=== PATIENT | male | born 1960 | race Caucasian/White ===

== ENCOUNTER 2021-03-31 10:21 | Outpatient (CLI) | payer OTHER, SELFPAY ==
--- NOTE | 2021-03-31 10:30 | ECG_ITS ---
Measurements Intervals [place] Rate: 53 P: 22 OH: 186 QRS: -3 QRSD: 104 T: 33 QT: 416 QTc: 391 Interpretive Statements SINUS BRADYCARDIA BORDERLINE R WAVE PROGRESSION, ANTERIOR LEADS CONSIDER INFERIOR INFARCT, AGE INDETERMINATE ABNORMAL ECG Electronically Signed On 03-31-2021 10:39:59 CDT by Дмитрий Yost D.O.
== END 2021-03-31 10:22 | disposition home or self-care (01) ==
LOC: ANHSURGERY 10:24
PROVIDERS: PCP Family Medicine; Visit Provider Surgery
DX: Z01.818 Encounter for other preprocedural examination (principal); E78.2 Mixed hyperlipidemia; R94.31 Abnormal electrocardiogram [ECG] [EKG]
CPT/HCPCS: 93005

== ENCOUNTER 2021-04-05 00:26 | Day surgery (SDC) | payer OTHER, SELFPAY ==
[2021-03-29 18:15] VITALS: BMI 27.0
--- NOTE | 2021-04-04 13:54 | P.PNAN_ITS ---
Anes - Initial Pre Proc Eval Procedure: Operation Date: 04/05/21 12:30 Proposed Procedures p Ventral Hernia Repair with Mesh - Nima Friend DO Date/Time: 04/04/21 13:54 Surgeon: Nima Friend DO Pre Op Diagnosis: ventral hernia Patient Data Age: 60 Gender: M Height: 1.88 m Weight: 95.45 kg Allergies Allergy/AdvReac Type Severity Reaction Status Date / Time No Known Allergies Allergy Verified 04/05/21 10:42 Home Medications Medication Instructions Recorded Confirmed Type Crestor 5 mg tablet 5 mg PO DAILY #90 tablet NS 12/15/20 03/29/21 Rx allopurinol 300 mg tablet See Rx Instructions .ROUTE 12/15/20 03/29/21 Rx .COMPLEX #90 tablet esomeprazole magnesium 20 mg 20 mg PO DAILY 02/20/21 03/29/21 History capsule,delayed release Patient hx anesthesia problems: none Family hx anesthesia problems: none [facility] Past Medical History Medical History (Updated 04/04/21 @ 13:54 by Luis Jeong DO) GERD (gastroesophageal reflux disease) Hyperlipidemia Family History Family History Father Stenosis of lumbosacral spine Wheelchair confinement Mother Heart disease Sibling Acute leukemia Social History Social History Smoking status: Never smoker Second hand tobacco smoke exposure: No Alcohol intake: former Substance use: never Substance use type: does not use Living arrangements: with family Spiritual care concerns: No Anes - Eval Final PreProcedure Day of Procedure 04/04/21 13:54 Patient weight: overweight Heart: regular rate and rhythm Lungs: clear to auscultation and normal air movement Airway: Mallampati scale class II and other (loose back right molar) Neurological: alert and oriented Last oral intake: >/= 8 hours ASA classification: II Emergent: no Anesthetic plan: proceed Anesthesia type and monitoring: general ETT and standard monitoring Informed Consent: The patient's anesthetic plan and its attendant risks and benefits were discussed with the patient/family/POA. Questions were solicited and answers provided to the satisfaction of the patient/family/POA.
[2021-04-05] VITALS (7 sets, daily range): BP systolic 106–141; BP diastolic 61–79; PULSE 53–68; RESP 12–17; TEMP 36.3–36.7; O2SAT 98–100; BMI 26.4
[2021-04-05] MEDS: LACTATED RINGERS 1,000 ML 30 ML IV CONT ×2 (11:00→14:16)
[2021-04-05] MEDS: ACETAMINOPHEN 500 MG TABLET 1000 MG PO (11:06)
[2021-04-05] MEDS: KETOROLAC 15 MG/ML VIAL (*BKC) IV PUSH (11:06)
--- NOTE | 2021-04-05 12:35 | PM.IMHP ---
H&P: HPI History of Present Illness Date/Time: 04/05/21 12:35 Chief Complaint: Ventral hernia Narrative: This is a 60-year-old man who presents for ventral hernia repair. He reports no changes since last being seen in the office. Review of Systems Review of Systems: All systems reviewed & are unremarkable except as noted in HPI and below Constitutional: Constitutional: Denies chills, Denies fever(s), Denies headache(s) and Denies weight loss Eyes: Eyes: Denies change in vision ENT: Denies dizziness, Denies headache(s), Denies neck mass and Denies throat swelling Cardiovascular: Cardiovascular: Denies chest pain, Denies lightheadedness and Denies dyspnea Respiratory: Respiratory: Denies cough, Denies dyspnea and Denies wheezing Gastrointestinal: Gastrointestinal: Denies abdominal pain, Denies change in bowel habits, Denies nausea and Denies vomiting Genitourinary: Genitourinary: Denies hematuria and Denies dysuria Musculoskeletal: Musculoskeletal: Reports as per HPI Integumentary/Breasts: Skin/Breast: Reports as per HPI Neurologic: Denies dizziness and Denies headache(s) Allergic/Immunologic: Allergic/Immunologic: Denies throat swelling and Denies wheezing [facility] Past Medical History Medical History (Updated 04/04/21 @ 13:54 by Luis Jeong DO) GERD (gastroesophageal reflux disease) Hyperlipidemia Family History Family History Father Stenosis of lumbosacral spine Wheelchair confinement Mother Heart disease Sibling Acute leukemia Social History Social History Smoking status: Never smoker Second hand tobacco smoke exposure: No Alcohol intake: former Substance use: never Substance use type: does not use Living arrangements: with family Spiritual care concerns: No Meds Home Medications and Allergies Home Medications Medication Instructions Recorded Confirmed Type Crestor 5 mg tablet 5 mg PO DAILY #90 tablet NS 12/15/20 03/29/21 Rx allopurinol 300 mg tablet See Rx Instructions .ROUTE 12/15/20 03/29/21 Rx .COMPLEX #90 tablet esomeprazole magnesium 20 mg 20 mg PO DAILY 02/20/21 03/29/21 History capsule,delayed release Allergies Allergy/AdvReac Type Severity Reaction Status Date / Time No Known Allergies Allergy Verified 04/05/21 10:42 Vital Signs Vital Signs - 24 hr 04/05/21 10:40 Temperature 36.5 C Pulse Rate 68 Respiratory Rate 14 Blood Pressure 120/79 Pulse Oximetry 100 Exam Const: General: no acute distress and alert Orientation/consciousness: patient oriented x3 HENMT: Head: normocephalic and atraumatic Ears: hearing grossly normal bilaterally General nose exam: Normal nares present Mouth: Yes Normal oral and palatal mucosa present Eyes: Periorbital: periorbital findings normal Sclera: sclerae normal EOM: EOMs intact bilaterally Neck: Neck: normal visual inspection, no lymphadenopathy and trachea midline Chest: Chest palpation & inspection: normal inspection of the chest Resp: Effort & Inspection: normal respiratory effort Auscultation: clear to auscultation bilaterally Cardio: Jugular venous distension: no JVD Rate: regular rate Rhythm: regular rhythm Heart sounds: S1 normal heart sound present and S2 normal heart sound present Peripheral pulses: Peripheral pulses 2+ throughout GI: Inspection: normal to inspection GI Palp: Yes Soft to palpation, No Tenderness to palpation present (GI), No Guarding due to palpation present (GI), Yes Hernia present (1-2 cm hernia near upper portion of umbilicus) and No Rebound tenderness present Percussion: Yes normal to percussion Auscultation: normal bowel sounds : General: Yes no CVA tenderness Back/Spine/Pelvis: Back: no CVA tenderness Neuro: General: patient oriented x3, no focal motor deficits and CN's II-XI intact bilaterally Cognition (Neuro): kay
--- NOTE | 2021-04-05 12:36 | WPDHPUPDATE1 ---
History and Physical Update Update Date/Time: 04/05/21 12:36 History and Physical has been reviewed, including an updated exam of the patient. There are NO changes in the patient's condition. Risks, benefits, and alternatives have been discussed and questions answered. Patient agrees to proceed with procedure.
[2021-04-05] MEDS: ceFAZolin 2 GM/D5W 50 ML 2 GM/50 ML BAG IVPB (12:49)
[2021-04-05] MEDS: BUPIVACAINE/EPINEPHRINE 0.5% 10 ML VIAL 30 ML INFILTRATE (13:33)
--- NOTE | 2021-04-05 13:42 | W.PM.PROC2 ---
Procedure Note - Detailed Date of Procedure 04/05/21 Pre-op Diagnosis ventral hernia Post-op Diagnosis same Procedure Performed Open ventral hernia repair with 6.6 cm Parietex ventral patch Surgeon Nima Friend, DO Anesthesia general and local (0.5% bupivacaine with epinephrine) Indications This is a 60-year-old man who presents with a hernia near his umbilicus that was 1st noticed a couple months ago. He noticed a bulge just above his umbilicus and was having tenderness with this. He was able to reduce the hernia by laying down. A 1-2 cm hernia defect was palpable just above the umbilicus on exam. Discussions were made with the patient about treatment options and decision was made to proceed with ventral hernia repair with mesh. Findings Ventral hernia repair was performed. The patient was found to have a 15 mm hernia defect located just superior to the umbilical stalk. A preperitoneal pocket was created for mesh placement. A 6.6 cm Parietex ventral patch was placed within the preperitoneal pocket and this was secured to the fascia using 0 Ethibond U-stitch trans fascial sutures. The hernia was then closed over the mesh using 0 Ethibond [id number] sutures. No specimens were obtained for pathology. Description of Procedure Procedure as well as risks, benefits, and alternatives were discussed with the patient. Written consent was obtained and placed in chart prior to procedure. Patient was brought back to surgical suite. He was placed supine on operating table. He was then intubated by Anesthesia Department. His abdomen was prepped and draped in sterile fashion using chlorhexidine prep. 0.5% bupivacaine with epinephrine was infiltrated locally around the operative area. A 4 cm curvilinear incision was made just superior to the umbilicus using a 15 blade scalpel. Electrocautery was used for hemostasis and for dissection down through the subcutaneous fat. Hernia sac was encountered and this was carefully freed up from surrounding subcutaneous fat using electrocautery. The hernia sac was freed up all the way down to the level of the fascia. The hernia sac was freed from the fascia and reduced back down into the abdominal cavity. The umbilical stalk was then lifted off of the fascia with electrocautery. The hernia defect was then measured. This was measuring approximately 15 mm. The decision was made to use a 6.6 cm Parietex ventral patch. The peritoneum was cleared under the fascia circumferentially around the hernia using blunt dissection and electrocautery. Once a wide enough pocket was created for the mesh, the mesh was then placed within this preperitoneal pocket and laid out flat centered on the hernia defect. The mesh appeared to be sitting in proper position. The mesh was then secured at the 4 corners using 0 Ethibond U-stitch trans fascial sutures. Once all 4 sutures were placed, the mesh was lifted up against the abdominal wall and appeared to be properly centered on the hernia defect. The fascia of the hernia defect was then reapproximated over the mesh using 0 Ethibond [id number] sutures. The 4 transfascial sutures were then tied down in place. The repair was inspected and appeared secure. 0.5% bupivacaine with epinephrine was infiltrated around the fascia and subcutaneous space. The umbilical stalk was then reapproximated to the fascia using a 3 0 Vicryl simple interrupted suture. The deep dermis was reapproximated using 3 0 Vicryl simple interrupted sutures, and then the skin was approximated using 4 Monocryl running subcuticular suture. Exofin glue was then applied on top. The patient was then awakened from anesthesia, extubated, and transferred to recovery. Implants 6.6 cm Parietex ventral patch Estimated Blood Loss 5 Complications No immediate complications Condition stable Disposition same day
== END 2021-04-05 15:30 | disposition home or self-care (01) ==
PROVIDERS: PCP Family Medicine; Visit Provider Surgery
PROC: 0WQF0ZZ Repair Abdominal Wall, Open Approach (ICD-10-PCS; CPT 49560; principal; 2021-04-05 12:30)
DX: K43.9 Ventral hernia without obstruction or gangrene (principal); E78.5 Hyperlipidemia, unspecified; K21.9 Gastro-esophageal reflux disease without esophagitis
CPT/HCPCS: 49560; 49568; 93005; A9270; C1781; C9290; J0690; J1100; J1885; J2250; J2405; J2704; J3010; J7120

== ENCOUNTER 2024-09-18 09:49 | Outpatient (CLI) | payer OTHER, SELFPAY | END 2024-09-18 09:50 | disposition home or self-care (01) | PROVIDERS: PCP Family Medicine; Visit Provider Physician Assistant Medical | DX: H90.3 Sensorineural hearing loss, bilateral (principal); H93.8X2 Other specified disorders of left ear; M35.7 Hypermobility syndrome | CPT/HCPCS: 92557; 92567 ==

== ENCOUNTER 2025-08-10 15:20 | Outpatient (CLI) | payer OTHER, SELFPAY ==
--- NOTE | ~2025-08-10 | XR_ITS ---
XR abdomen/kub 1V INDICATION: R10.A1 - Flank pain, right side REFERENCE: NONE FINDINGS: A supine view of the abdomen is submitted. The bowel gas pattern is nonobstructive. No free air is identified. Osseous structures are intact. No nephroureteral lithiasis. IMPRESSION: Normal KUB. Reviewed, dictated and finalized at location S. E FORMER IMPRESSION: Normal KUB.
== END 2025-08-10 15:21 | disposition home or self-care (01) ==
LOC: MICIMG 15:21
PROVIDERS: PCP Family Medicine; Visit Provider Physician Assistant Medical
DX: R10.A1 Flank pain, right side (principal); G89.29 Other chronic pain
CPT/HCPCS: 74018